=== PATIENT | male | born 1980 | race Caucasian/White ===

== ENCOUNTER 2018-12-07 18:03 | Emergency (ER) | payer SELFPAY ==
[2018-12-07 18:13] VITALS: BP 107/60; PULSE 75; TEMP 98.5; BMI 31.1
[2018-12-07] MEDS ORDERED: ONDANSETRON *ODT* 4 MG TABLET SL ONE (18:13)
--- NOTE | 2018-12-07 18:13 | PDOC ---
Rapid Medical Evaluation Time Seen by Provider: 12/07/18 18:09 Medical Evaluation: 12/07/18 18:09 I have performed a brief in-person evaluation of this patient. The patient presents with a chief complaint of: nausea, vomiting and diarrhea x 4 days . States unable to keep food down. Reports nausea Pertinent physical exam findings: NAD even and unlabored breathing obese abdomen, non tender +bs I have ordered the following: labs, iv acces, ivf, antiemetic The patient will proceed to the ED for further evaluation. Discharge Disposition - Diagnosis Vomiting and diarrhea - Referrals - Patient Instructions - Post Discharge Activity
[2018-12-07] MEDS ORDERED: ONDANSETRON *ODT* 4 MG TABLET ONE (19:34)
[2018-12-07 19:39] LABS: BASO % 0.7 % (0-2.0); EOS % 1.7 % (0-4.5); HEMATOCRIT 39.7 % (35.4-49); HEMOGLOBIN 14.2 GM/dL (11.7-16.9); LYMPH % 27.5 % (8-40); MCH 32.7 pg (25.7-33.7); MCHC 35.9 g/dl (32.0-35.9); NEUT % 53.1 % (42.8-82.8); PLATELET COUNT 173 K/MM3 (134-434); RBC 4.36 M/mm3 (4.00-5.60); RDW 13.1 % (11.9-15.9); WHITE BLOOD COUNT 8.5 K/mm3 (4.0-10.0)
[2018-12-07 20:31] LABS: ALBUMIN 3.4 g/dl (3.4-5.0); ALK PHOS 131 U/L (45-117); ANION GAP 6 MMOL/L (8-16); BILIRUBIN,TOTAL 0.1 mg/dL (0.2-1); BLOOD UREA NITROGEN 9 mg/dL (7-18); CALCIUM 8.4 mg/dL (8.5-10.1); CHLORIDE 106 mmol/L (98-107); CO2 30 mmol/L (21-32); CREATININE 0.7 mg/dL (0.55-1.3); GLUCOSE,RANDOM 98 mg/dL (74-106); POTASSIUM 3.7 mmol/L (3.5-5.1); SGOT/AST 34 U/L (15-37); SGPT/ALT 47 U/L (13-61); SODIUM 141 mmol/L (136-145); TOT PROT 7.2 g/dl (6.4-8.2)
[2018-12-07] MEDS ORDERED: MAG HYDROX/AL HYDROX/SIMETH 30 ML UNIT-DOSE CUP PO ONE (21:14)
[2018-12-07] MEDS ORDERED: SODIUM CHLORIDE 0.9% 500 ML INFUS.BAG IV ONE (21:15)
[2018-12-07] MEDS ORDERED: FAMOTIDINE 20 MG/50 ML IVPB 20 MG/50 ML MG IVPB ONE ×2 (21:15→22:21)
--- NOTE | 2018-12-07 21:16 | PDOC ---
History of Present Illness - General Chief Complaint: Vomiting/Diarrhea Stated Complaint: VOMITING FEVER DIARRHEA Time Seen by Provider: 12/07/18 18:09 History Source: Patient - History of Present Illness Initial Comments: 12/07/18 21:10 38 year old male with tactile temps at home, NVD and bloating for the last 4 days. denies vomiting today had 3 episodes of diarrhea today. Past History - Past Medical History Allergies/Adverse Reactions: Allergies Allergy/AdvReac Type Severity Reaction Status Date / Time No Known Allergies Allergy Verified 12/07/18 18:12 COPD: No Disorders: No - Surgical History Cardiac Surgery: No Gastric Stapling: No - Immunization History Immunization Up to Date: No - Suicide/Smoking/Psychosocial Hx Smoking History: Never smoked Have you smoked in the past 12 months: No Information on smoking cessation initiated: No Hx Alcohol Use: No Drug/Substance Use Hx: No Review of Systems - Review of Systems Able to Perform ROS?: Yes Is the patient limited Ghanaian proficient: No Constitutional: Yes: Fever. No: Symptoms Reported, See HPI, Chills, Diaphoresis , Loss of Appetite, Malaise, Night Sweats, Weakness, Weight Stable, Unintentional Wgt. Loss, Unexplained wgt Loss, Other ABD/GI: Yes: Diarrhea, Nausea, Vomiting, Other (bloating) : No: Symptoms Reported, See HPI, Burning, Dysuria, Discharge, Frequency, Flank Pain, Hematuria, Incontinence, Pain, Urgency, Testicular Mass, Testicular Swelling, Lesions, Testicular Pain, Other *Physical Exam - Vital Signs Last Vital Signs Temp Pulse Resp BP Pulse Ox 98.5 F 75 18 107/60 98 12/07/18 18:10 12/07/18 18:10 12/07/18 18:10 12/07/18 18:10 12/07/18 18:10 - Physical Exam General Appearance: Yes: Appropriately Dressed Respiratory/Chest: positive: Lungs Clear, Normal Breath Sounds Gastrointestinal/Abdominal: positive: Normal Bowel Sounds, Soft. negative: Tender Musculoskeletal: positive: Normal Inspection Extremity: positive: Normal Capillary Refill, Normal Inspection, Normal Range of Motion Integumentary: positive: Normal Color, Dry, Warm Neurologic: positive: Fully Oriented, Normal Mood/Affect Moderate Sedation - Procedure Monitoring Vital Signs: Procedure Monitoring Vital Signs Temperature 98.5 F 12/07/18 18:10 Pulse Rate 75 12/07/18 18:10 Respiratory Rate 18 12/07/18 18:10 Blood Pressure 107/60 12/07/18 18:10 O2 Sat by Pulse Oximetry (%) 98 12/07/18 18:10 ED Treatment Course - LABORATORY CBC & Chemistry Diagram: 12/07/18 19:30 12/07/18 19:30 - ADDITIONAL ORDERS Additional order review: Laboratory Results 12/07/18 19:30 Sodium 141 Potassium 3.7 Chloride 106 Carbon Dioxide 30 Anion Gap 6 L BUN 9 Creatinine 0.7 Creat Clearance w eGFR > 60 Random Glucose 98 Calcium 8.4 L Total Bilirubin 0.1 L AST 34 ALT 47 Alkaline Phosphatase 131 H Total Protein 7.2 Albumin 3.4 12/07/18 19:30 RBC 4.36 MCV 91.0 MCHC 35.9 RDW 13.1 MPV 8.0 Neutrophils % 53.1 Lymphocytes % 27.5 Monocytes % 17.0 H Eosinophils % 1.7 Basophils % 0.7 - Medications Given in the ED: ED Medications Discontinued Medications Generic Name Dose Route Start Last Admin Trade Name Ravinq PRN Reason Stop Dose Admin Ondansetron HCl 4 mg 12/07/18 18:13 12/07/18 19:36 Zofran Odt - SL 12/07/18 18:14 4 mg ONCE ONE Administration Progress Note - Progress Note Progress Note: A: gastro enteritis P: labs IVF zofran pepcid Medical Decision Making - Medical Decision Making 12/07/18 23:09 patient reports feeling better. will d/c home *DC/Admit/Observation/Transfer Diagnosis at time of Disposition: Gastroenteritis - Discharge Dispostion Disposition: HOME Condition at time of disposition: Stable - Referrals - Patient Instructions Printed Discharge Instructions: Viral Gastroenteritis Additional Instructions: drink plenty of fluids start a BRAT ( bananas, rice apples toast) follow up with your doctor return to the ER if symptoms worsen - Post Discharge Activity Forms/Work/School Notes: Back to Work
[2018-12-07] MEDS ORDERED: MAG HYDROX/AL HYDROX/SIMETH 30 ML UNIT-DOSE CUP ONE (22:20)
== END 2018-12-07 23:55 | disposition home or self-care (01) ==
LOC: JER 18:03
PROC: 3E033GC Introduction of Other Therapeutic Substance into Peripheral Vein, Percutaneous Approach (ICD-10-PCS; principal; 2018-12-07)
DX: K52.9 Noninfective gastroenteritis and colitis, unspecified (principal)
CPT/HCPCS: 36415; 80053; 85025; 99281-25; Q0162